=== PATIENT | male | born 1965 | race African-American/Black ===

== ENCOUNTER 2016-11-05 17:59 | Emergency (ER) | payer OTHER, BC ==
[~2016-11-05] VITALS: Ht 175.3 cm; Wt 98.0 kg
[~2016-11-05 17:59] MED LIST: HYDR12.56 PO; PRIN10TA PO
[2016-11-05 18:01] VITALS: BP 172/89; PULSE 88; RESP 18; TEMP 97.9; O2SAT 95
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
[2016-11-05] MEDS ORDERED: IBUP-232 PO (18:49)
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
== END 2016-11-05 19:18 | disposition home or self-care (01) ==
LOC: NEPB 17:59
DX: S60.221A Contusion of right hand, initial encounter (principal); V43.62XA Car passenger injured in collision with other type car in traffic accident, initial encounter
CPT/HCPCS: 73130; 99283